=== PATIENT | male | born 1975 | race Caucasian/White ===

== ENCOUNTER 2016-08-05 06:32 | Emergency (ER) | payer OTHER ==
[2016-08-05] MEDS ORDERED: MAALOX/LIDO2%VISC/SIMETHICONE 40 ML BOT ONE (07:16)
[2016-08-05 07:21] LABS: ABSOLUTE NEUTROPHIL COUNT 3.4 K/mm3 (1.8-7.7); BASO # 0.1 K/mm3 (0.0-0.2); BASO % 0.8 % (0.2-1.0); EOS # 0.5 (0.0-0.5); EOS % 6.9 % (0.9-2.9); HEMATOCRIT 43.2 % (32.0-52.0); HEMOGLOBIN 14.8 gm/l (14.0-18.0); IMM NEUT% 0.2 % (0-1); LYMPH % 30.4 % (15-45); MEAN CELL VOLUME 89.6 fl (80.0-94.0); MEAN CORPUSCULAR HEMOGLOBIN 30.7 pg (27.0-31.0); MEAN CORPUSCULAR HGB CONC 34.3 g/dl (33.0-37.0); MEAN PLATELET VOLUME 10.1 fl (7.4-10.4); MONO # 0.6 (0.0-0.8); MONO % 9.5 % (4-12); NEUT % 52.2 % (43-75); PLATELET COUNT 183 K/mm3 (130-400); RED CELL DISTRIBUTION WIDTH 12.4 % (11.5-14.5)
[2016-08-05 07:40] LABS: ALB/GLOB RATIO 1.7 (>1.0); ALBUMIN 4.3 gm/dL (3.5-5.7); CALCIUM 9.3 mg/dL (8.6-10.3)
--- NOTE | 2016-08-05 07:48 | US ---
Exam: Gallbladder ultrasound COMPARISON: 05/08/2016 INDICATION: Right upper quadrant pain. FINDINGS: Gallbladder ultrasound was obtained. The gallbladder is normal without stones, sludge or wall thickening. There was a negative sonographic Galvez sign. Common bile duct normal at 3 mm. IMPRESSION: Negative gallbladder ultrasound. Report was uploaded to the EMR at 0745 hours 08/05/2016.
[2016-08-05 08:31] LABS: URINE BILIRUBIN NEGATIVE (NEGATIVE); URINE BLOOD NEGATIVE (NEGATIVE); URINE GLUCOSE (UA) NEGATIVE (NEGATIVE); URINE LEUKOCYTE ESTERASE NEGATIVE (NEGATIVE); URINE NITRITE NEGATIVE (NEGATIVE); URINE PROTEIN NEGATIVE (NEGATIVE); URINE UROBILINOGEN NORMAL (0-1 mg/dl)
[2016-08-05 08:32] LABS: URINE APPEARANCE CLEAR; URINE COLOR YELLOW
== END 2016-08-05 08:58 | disposition home or self-care (01) ==
LOC: EEVIPCON 06:32 → ED 06:32
DX: R10.13 Epigastric pain (principal); R74.8 Abnormal levels of other serum enzymes; R11.0 Nausea
CPT/HCPCS: 83690; 85025; 80053; 81003; 76705; 99284; 93005; 99283; A9270